=== PATIENT | female | born 1950 | race Caucasian/White ===

== ENCOUNTER 2016-08-16 07:35 | Day surgery (SDC) | payer MEDICARE, OTHER ==
[~2016-08-16] VITALS: Ht 161.3 cm; Wt 46.4 kg
[~2016-08-16 07:35] MED LIST: ASCO10007 PO; ASPI-1093 PO; BETA PO; CARNITINE PO; LORazepam 2 MG/ML VIAL IVP ONE; MELA10TA2 PO; METHYL GUARD PO; MISTLETOE PO; MUCUNA PO; PANCREATIC ENZYME PO; PANTOTHENIC ACID PO; PHOS1POW PO; R LI PO; SODIUM CHLORIDE 0.9% 1,000 ML IV ONE; UBID100C10 PO; VINP1POW PO; VITAMIN B IJ; WOBENZYME PO; [UNRECOGNIZED DRUG - CODE] PO; [UNRECOGNIZED DRUG - CODE] PO; [UNRECOGNIZED DRUG - CODE] PO; [UNRECOGNIZED DRUG - OTHER] PO; [UNRECOGNIZED DRUG - OTHER] PO; [UNRECOGNIZED DRUG - OTHER] PO; [UNRECOGNIZED DRUG - OTHER] PO; [UNRECOGNIZED DRUG - OTHER] PO; [UNRECOGNIZED DRUG - OTHER] PO; [UNRECOGNIZED DRUG - OTHER] PO; [UNRECOGNIZED DRUG - OTHER] RC; [UNRECOGNIZED DRUG - REMARK] PO
[2016-08-16] MEDS ORDERED: VANCOMYCIN HCL 1 GM/D5% WATER 200 ML IV ONE (08:00)
[2016-08-16] MEDS ORDERED: FentaNYL CITRATE-PF 100 MCG/2 ML VIAL IVP ONE (10:00)
[2016-08-16] MEDS ORDERED: MIDAZOLAM HCL 2 MG/2 ML VIAL IVP ONE (10:07)
[2016-08-16] MEDS ORDERED: HYDROmorphone 2 MG/ML SYRINGE IVP ONE ×2 (10:45→17:00)
[2016-08-16] MEDS ORDERED: SODIUM CHLORIDE 0.9% 1,000 ML IV ONE ×2 (10:45→14:20)
[2016-08-16] MEDS ORDERED: OxyCODONE HCL/ACETAMINOPHEN 5-325 MG TABLET PO ONE (10:45)
[2016-08-16] MEDS ORDERED: LORazepam 2 MG/ML VIAL ONE (14:21)
[2016-08-16] MEDS ORDERED: FentaNYL CITRATE-PF 100 MCG/2 ML VIAL ONE (14:21)
[2016-08-16] MEDS ORDERED: MIDAZOLAM HCL 2 MG/2 ML VIAL ONE (14:21)
[2016-08-16] MEDS ORDERED: LIDOCAINE HCL/PF 1% 30 ML VIAL ONE (14:21)
[2016-08-16] MEDS ORDERED: HYDROmorphone 2 MG/ML SYRINGE ONE ×2 (14:23→17:09)
[2016-08-16] MEDS ORDERED: OxyCODONE HCL/ACETAMINOPHEN 5-325 MG TABLET ONE (14:25)
[2016-08-16] MEDS ORDERED: 0.9% SODIUM CHLORIDE 10 ML SYRINGE IVP ONE (16:56)
== END 2016-08-16 18:10 | disposition home or self-care (01) ==
LOC: SDS 07:35 → EDSTATUS 08:00 → SDS 18:10
PROVIDERS: ATTEND Radiology Diagnostic Radiology
DX: D24.1 Benign neoplasm of right breast (principal); E84.9 Cystic fibrosis, unspecified; Z88.8 Allergy status to other drugs, medicaments and biological substances; Z98.890 Other specified postprocedural states; Z98.42 Cataract extraction status, left eye; Z98.41 Cataract extraction status, right eye; Z87.01 Personal history of pneumonia (recurrent); Z85.3 Personal history of malignant neoplasm of breast
CPT/HCPCS: 19105; 32550; 75989; C2618; J1170; J2060; J2250; J3010; J3370; J3490; J7030; 36245; 76937; 76942